=== PATIENT | male | born 1975 | race American Indian/Alaskan Native ===

== ENCOUNTER 2016-05-23 11:05 | Inpatient (IN) | payer OTHER ==
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
[2016-05-23] MEDS ORDERED: NORCO 5/325 PO ONE (17:35)
[2016-05-23] MEDS ORDERED: TORADOL IV ONE (17:35)
[2016-05-23] MEDS ORDERED: BACTRIM DS PO ONE (17:35)
[2016-05-23] MEDS ORDERED: CLEOCIN 600 MG/50 mL 600 MG/50 ML BAG IV ONE (17:36)
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
[2016-05-23 18:30] LABS: Hematocrit 43.5 % (35.5-45.6); Hemoglobin 14.6 gm/dl (11.8-15.2); Mean Corpuscular HGB Conc 34 % (32-34); Mean Corpuscular Hemoglobin 32 pg (28-32); Mean Corpuscular Volume 95 fl (84-94); Platelet Count 163 K/mm3 (140-440); Red Blood Count 4.57 M/mm3 (3.65-5.03); Red Cell Distribution Width 13.5 % (13.2-15.2); White Blood Count 5.5 K/mm3 (4.5-11.0)
[2016-05-23 18:44] LABS: Anion Gap 14 mmol/L; Blood Urea Nitrogen 14 mg/dL (9-20); Calcium 8.6 mg/dL (8.4-10.2); Carbon Dioxide 26 mmol/L (22-30); Chloride 103.9 mmol/L (98-107); Glucose 81 mg/dL (75-100); Potassium 4.4 mmol/L (3.6-5.0); Sodium 139 mmol/L (137-145)
[2016-05-23 18:56] LABS: Creatine Kinase 2355 units/L (55-170)
[2016-05-23 19:22] LABS: Anisocytosis 1+; Basophils % (Manual) 0 % (0.0-1.8); Blastocytes % (Manual) 0 %; Diff Status Complete
[2016-05-23] MEDS ORDERED: NACL 0.9% 1000 ML 1,000 ML IV ONE (19:25)
--- NOTE | 2016-05-23 20:29 | Admit Criteria Form ---
Admission Criteria Documentation: CELLULITIS Clinical Indications for Admission to Inpatient Care (Place 'X' for any and all applicable criteria): Admission is indicated for ANY ONE of the following(1)(2)(3)(4)(5): [ ]I. Limb-threatening infection [ ]II. High-risk comorbid condition as indicated by ANY ONE of the following: [ ]a) Uncontrolled diabetes (eg, HbA1c greater than 10% (0.1)) [ ]b) Cirrhosis [ ]c) Neutropenia [ ]d) Asplenia [ ]e) Immunosuppression [ ]f) Symptomatic heart failure [ ]III. Failure of outpatient therapy as indicated by ALL of the following: [ ]a) Progression or no improvement after adequate trial (minimum of 48 hours, with longer period for stable lower extremity infection) [ ]b) Adequate antibiotic regimen as indicated by use of ANY ONE of the following: [ ]i) First-generation cephalosporin (e.g., cephalexin) [ ]ii) Antistaphylococcal penicillin (e.g., dicloxacillin) [ ]iii) Penicillin-allergic patient regimen (clindamycin, extended-spectrum fluoroquinolone, or doxycycline) [ ]iv) Resistant organism (eg, methicillin-resistant Staphylococcus aureus) regimen (6) [ ]c) Outpatient intravenous therapy regimen is not appropriate due to ANY ONE of the following. (7)(8)(9)(10): [ ]i) It was tried and was not successful (eg, progression of infection). [ ]ii) It is not available or cannot be arranged in a clinically appropriate time frame (e.g., the next day). [ ]iii) Clinical presentation (eg, acuity of infection, rapidity of progression, confirmed or suspected bacteremia) is judged to require ALL of the following: [ ]1) Immediate initiation of intravenous therapy ( eg, cannot wait for next day) [ ]2) Intensity of patient monitoring and observation (eg, vital sign measurement, checks for infection progression) that cannot be provided at other than inpatient level of care [ ]IV. Mental status changes [ ]V. Bacteremia [ ]. Hemodynamic instability [ ]VII. Suspected necrotizing soft tissue infection (e.g., gas in tissue)(11)( 12) [ ]VIII. Orbital infection (13)(14) [ ]IX. Associated surgical procedure (e.g., abscess drainage, debridement) not amenable to outpatient, emergency department, or observation care [ ]X. Cutaneous gangrene [ ]XI. High fever (temperature greater than 39.5 degrees C (103.1 degrees F) (oral)) not responsive to outpatient, emergency department, or observation care therapy [X ]XIII. Inpatient admission required rather than observation care (Also use Cellulitis: Observation Care as appropriate) because of ANY ONE of the following : [ ]a) Periorbital or perineal infection that is severe or worsening [ ]b) Severe pain requiring acute inpatient management [ ]c) IV fluid to replace significant ongoing (e.g., for over 24 hours) losses (greater than 3L/m2 per day) [ ]d) Compartment syndrome monitoring (17) [ ]e) Strict or protective (eg, laminar flow) isolation [ ]f) Urgent debridement or skin grafting [ ]g) Bone or joint debridement [ ]h) Immediate inpatient surgery [X ]i) Other condition, treatment or monitoring requiring inpatient admission Extended stay beyond goal length of stay may be needed for (1)(18): [ ]a) Necrotizing soft tissue infection or fasciitis [ ]b) Gram-negative infection [ ]c) Methicillin-resistant Staphylococcal aureus (MRSA) infection [ ]d) Peripheral venous insufficiency with cellulitis [ ]e) Extensive edema [ ]f) Sepsis or continued Hemodynamic instability [ ]g) Continued high fever or mental status change [ ]h) Bacteremia [ ]i) Active serious comorbid conditions ( eg, heart failure, renal insufficiency) The original [employer] content created by [employer] has been revised. The portions of the content which have been revised are identified through the use of italic text or in bold, and [facility] has neither reviewed nor approved the modified material. All other unmodified content is copyright [facility] [employer] Please see references footnoted in the original [facility] [employer] edition 2016 Admission Criteria Met: Yes
[2016-05-23] MEDS ORDERED: MILK OF MAGNESIA PO PRN (22:05)
[2016-05-23] MEDS ORDERED: DULCOLAX PR PRN (22:05)
[2016-05-23] MEDS ORDERED: TYLENOL PO PRN (22:05)
[2016-05-23] MEDS ORDERED: ZOFRAN IV PRN (22:05)
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
[2016-05-24] MEDS: LEVAQUIN 750MG/150ML 750 MG/150 ML BAG IV SCH ×2 (00:23→10:00)
[2016-05-24 07:47] LABS: Hematocrit 44.6 % (35.5-45.6); Hemoglobin 14.9 gm/dl (11.8-15.2); Mean Corpuscular HGB Conc 33 % (32-34); Mean Corpuscular Hemoglobin 32 pg (28-32); Mean Corpuscular Volume 96 fl (84-94); Platelet Count 166 K/mm3 (140-440); Red Blood Count 4.64 M/mm3 (3.65-5.03); Red Cell Distribution Width 13.4 % (13.2-15.2); White Blood Count 4.8 K/mm3 (4.5-11.0)
[2016-05-24 07:49] LABS: Anion Gap 12 mmol/L; BUN/Creatinine Ratio 12.22; Blood Urea Nitrogen 11 mg/dL (9-20); Calcium 8.7 mg/dL (8.4-10.2); Carbon Dioxide 26 mmol/L (22-30); Chloride 103.4 mmol/L (98-107); Glucose 95 mg/dL (75-100); Potassium 4.5 mmol/L (3.6-5.0); Sodium 137 mmol/L (137-145)
[2016-05-24 09:27] LABS: Basophils % (Manual) 0 % (0.0-1.8); Blastocytes % (Manual) 0 %
[2016-05-24 09:28] LABS: Diff Status Complete; RBC Morphology Normal
[2016-05-24] MEDS ORDERED: NACL 0.9% 1000 ML 1,000 ML IV SCH (14:00)
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
[2016-05-24] MEDS: PERCOCET 5/325 PO PRN ×2 (15:17→23:38)
--- NOTE | 2016-05-25 08:02 | Vascular Lab Report ---
Right Lower Extremity Venous Duplex Study: Reason for Exam: Redness and swelling of the right lower extremity. Comments on the Right: All veins visualized are freely compressible without evidence of internal echogenicity. Flow is spontaneous and phasic throughout. No evidence of acute or chronic thrombus is seen in any of the vessels visualized. Comments on the Left: A limited duplex study was done of the proximal veins of the left lower extremity. All veins visualized are freely compressible without evidence of internal echogenicity. Flow is spontaneous and phasic throughout. No evidence of acute or chronic thrombus is seen in any of the vessels visualized. Impression: No evidence of acute or chronic deep venous thrombosis in the right lower extremity.
[2016-05-25 09:55] VITALS: BP 120/59
[2016-05-25] MEDS: LEVAQUIN 750MG/150ML 750 MG/150 ML BAG IV SCH (10:06)
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
== END 2016-05-25 13:50 | disposition home or self-care (01) | DRG 603 ==
LOC: ED 11:05 → 3A 20:08
PROVIDERS: ADMIT Internal Medicine; ATTEND Internal Medicine
DX: L03.115 Cellulitis of right lower limb (principal); M62.82 Rhabdomyolysis; F17.210 Nicotine dependence, cigarettes, uncomplicated; W19.XXXA Unspecified fall, initial encounter; Y93.89 Activity, other specified; Y92.89 Other specified places as the place of occurrence of the external cause; Y99.8 Other external cause status; Z71.6 Tobacco abuse counseling; Z93.3 Colostomy status; Z98.890 Other specified postprocedural states; Z82.49 Family history of ischemic heart disease and other diseases of the circulatory system
CPT/HCPCS: 36415; 80048; 82550; 84550; 85007; 85025; 96365; 96375; 99406; J1885; J1956; J7030

== ENCOUNTER 2016-09-19 06:11 | Emergency (ER) | payer SELFPAY ==
[2016-09-19 07:45] LABS: Basophils % (Auto) 0.3 % (0.0-1.8); Eosinophils % (Auto) 2.2 % (0.0-4.3); Hemoglobin 15.3 gm/dl (11.8-15.2); Mean Corpuscular HGB Conc 35 % (32-34); Mean Corpuscular Hemoglobin 33 pg (28-32); Mean Corpuscular Volume 96 fl (84-94); Platelet Count 198 K/mm3 (140-440); Red Blood Count 4.58 M/mm3 (3.65-5.03); Red Cell Distribution Width 13.2 % (13.2-15.2); White Blood Count 5.4 K/mm3 (4.5-11.0)
[2016-09-19 07:55] LABS: Anion Gap 16 mmol/L; Blood Urea Nitrogen 12 mg/dL (9-20); Calcium 9.2 mg/dL (8.4-10.2); Carbon Dioxide 26 mmol/L (22-30); Chloride 102.2 mmol/L (98-107); Glucose 87 mg/dL (75-100); Potassium 4.2 mmol/L (3.6-5.0); Sodium 140 mmol/L (137-145)
--- NOTE | 2016-09-19 10:01 | Emergency Department Report ---
Entered by MARIAH SANTOS, acting as scribe for RAJWINDER LEMUS PA. Chief Complaint: Chest Pain Stated Complaint: CHEST PAIN Time Seen by Provider: 09/19/16 09:51 - HPI History of Present Illness: Pt c/o right sided chest wall pain that began this morning. Patient denies radiation of pain. Patient states he was seen in this ED on April and was told he had a high risk of SD. Rates pain a 4/10 in severity. Denies nausea and vomiting. Denies SOB. Use tobacco products and EtOH. Denies drug use. - ROS Review of Systems: All system are negative unless stated in HPI above. - Exam Vital Signs: Vital Signs 09/19/16 06:44 Temperature 97.5 F L Pulse Rate 50 L Respiratory 18 Rate Blood Pressure 133/94 O2 Sat by Pulse 98 Oximetry Physical Exam: General: well nourished, well developed, 41 year old male in no acute distress and nontoxic in appearance Chest/CV: No chest wall deformity or mass noted. Right sided reproducible chest wall tenderness. S1 and S2, regular rate rhythm negative murmur Lungs: Clear to auscultation bilaterally, no rhonchi, wheezes, or rales. Normal work of breathing. No use of accessory muscles Extremities: No CCE. +2 pulses. No neurovascular compromise. No lower extremity swelling or tenderness MSE screening note: Focused history and physical exam performed. Due to findings the following was ordered:lizbet ohara See above ED Medical Decision Making - Lab Data Result diagrams: 09/19/16 07:18 09/19/16 07:18 Lab Results 09/19/16 09/19/16 Range/Units 07:18 07:18 WBC 5.4 (4.5-11.0) K/mm3 RBC 4.58 (3.65-5.03) M/mm3 Hgb 15.3 H (11.8-15.2) gm/dl Hct 44.0 (35.5-45.6) % MCV 96 H (84-94) fl MCH 33 H (28-32) pg MCHC 35 H (32-34) % RDW 13.2 (13.2-15.2) % Plt Count 198 (140-440) K/mm3 Lymph % (Auto) 43.0 H (13.4-35.0) % [place] % (Auto) 10.1 H (0.0-7.3) % Eos % (Auto) 2.2 (0.0-4.3) % Baso % (Auto) 0.3 (0.0-1.8) % Lymph # 2.3 (1.2-5.4) K/mm3 [place] # 0.5 (0.0-0.8) K/mm3 Eos # 0.1 (0.0-0.4) K/mm3 Baso # 0.0 (0.0-0.1) K/mm3 Seg Neutrophils % 44.4 (40.0-70.0) % Seg Neutrophils # 2.4 (1.8-7.7) K/mm3 Sodium 140 (137-145) mmol/L Potassium 4.2 (3.6-5.0) mmol/L Chloride 102.2 (98-107) mmol/L Carbon Dioxide 26 (22-30) mmol/L Anion Gap 16 mmol/L BUN 12 (9-20) mg/dL Creatinine 0.8 (0.8-1.5) mg/dL Estimated GFR > 60 ml/min BUN/Creatinine Ratio 15.00 % Glucose 87 (75-100) mg/dL Calcium 9.2 (8.4-10.2) mg/dL Troponin T < 0.010 (0.00-0.029) ng/mL - Medical Decision Making Patient screened by provider in triage area. Patient sent to be seen by MD on main ED side. Appropriate protocol initiated ED Disposition for MSE Condition: Stable Referrals: PRIMARY CARE,MD [Primary Care Provider] - 3-5 Days This documentation as recorded by the DANIELLE martin JASMINE,accurately reflects the service I personally performed and the decisions made by ALLAN severino VERONA A, PA.
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
[2016-09-19 13:42] VITALS: BP 140/86
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
== END 2016-09-19 14:42 | disposition home or self-care (01) ==
LOC: ED 06:11
DX: R07.9 Chest pain, unspecified (principal); J45.909 Unspecified asthma, uncomplicated; F17.200 Nicotine dependence, unspecified, uncomplicated; Z79.82 Long term (current) use of aspirin
CPT/HCPCS: 36415; 71020; 80048; 84484; 85025; 93005; 93010

== ENCOUNTER 2017-05-20 13:25 | Emergency (ER) | payer SELFPAY | END 2017-05-20 13:35 | disposition left against medical advice (07) | LOC: ED 13:25 | DX: R07.89 Other chest pain (principal); Z53.21 Procedure and treatment not carried out due to patient leaving prior to being seen by health care provider | CPT/HCPCS: 93005; 93010 ==

== ENCOUNTER 2019-02-22 08:53 | Emergency (ER) | payer SELFPAY ==
[2019-02-22 09:09] VITALS: BP 157/93
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
== END 2019-02-22 12:16 | disposition home or self-care (01) ==
LOC: ED 08:53
DX: B34.9 Viral infection, unspecified (principal); J45.909 Unspecified asthma, uncomplicated; F17.200 Nicotine dependence, unspecified, uncomplicated
CPT/HCPCS: 99282

== ENCOUNTER 2020-08-11 11:39 | Emergency (ER) | payer SELFPAY | END 2020-08-11 15:00 | disposition left against medical advice (07) | LOC: ED 11:39 ==